=== PATIENT | female | born 2000 | race American Indian/Alaskan Native ===

== ENCOUNTER 2020-06-09 19:25 | Emergency (ER) | payer SELFPAY ==
[2020-06-09 20:35] VITALS: BP 124/76
--- NOTE | 2020-06-09 20:36 | Event Note ---
ED Screening Note Date of service: 06/09/20 Time: 20:34 ED Screening Note: 19-year-old female patient with history of asthma presents emergency department complaints of chest pain starting last night and right-sided neck pain/right- sided headache starting 1 week ago. Patient states she was lifted up in the air and dropped by accident, at which point her neck jerked back violently. She did not strike her head or lose consciousness. She states the chest pain is reminiscent of prior asthma exacerbations. She used an inhaler earlier today with relief. Denies shortness of breath, cough, wheezing. General: Awake, appropriately interactive, no acute distress. Neck: Supple. Full range of motion intact. There is right paraspinal cervical tenderness without midline tenderness or step-offs. Cardiovascular: Normal peripheral perfusion. Pulmonary: No respiratory distress. Patient is speaking normally without use of accessory muscles. Skin: No apparent rashes or lesions. Neurological: No facial asymmetry. Speech is clear. Follows commands. Patient is alert and oriented. Musculoskeletal: Moves all four extremities spontaneously with normal range of motion. Psych: Cooperative. Appropriate mood and affect. I have greeted and performed a focused rapid initial assessment of this patient. A comprehensive ED assessment and evaluation of the patient, analysis of all test results, and completion of the medical decision-making process will be conducted by additional ED providers. This initial assessment/diagnostic orders/clinical plan/treatment(s) is/are subject to change based on patients health status, clinical progression and re-assessment. Further treatment and workup at subsequent clinical provider's discretion. Patient/guardian urged not to elope from the ED as their condition may be serious if not clinically assessed and managed.
[2020-06-09] MEDS ORDERED: ALUM-MAG HYDROXIDE-SIMETHICONE 200-200-20MG/5ML ORAL LIQD 30 ML PO ONE (21:18)
[2020-06-09] MEDS ORDERED: IBUPROFEN 800 MG TAB PO ONE (21:18)
[2020-06-09] MEDS ORDERED: LIDOCAINE VISCOUS 2% 15 ML ORAL LIQD PO ONE (21:18)
--- NOTE | 2020-06-09 21:22 | Emergency Department Report ---
ED General Adult HPI - General Chief complaint: Neck Pain/Injury Stated complaint: HEADACHE/CHEST PAIN Time Seen by Provider: 06/09/20 21:16 Source: patient Mode of arrival: Ambulatory Limitations: No Limitations - History of Present Illness Initial comments: Pt is a 19-year-old female patient with history of asthma who presents to emergency department for complaints of chest pain starting last night and right- sided neck pain/right-sided headache starting 1 week ago. Patient states she was lifted up in the air and dropped by accident, at which point her neck jerked back violently. She did not strike her head or lose consciousness. She states the chest pain is reminiscent of prior asthma exacerbations. She used an inhaler earlier today with relief. Denies shortness of breath, cough, wheezing. Symptoms are exacerbated by movement and activity, symptoms are improved by rest and inhaler Severity scale (0 -10): 8 - Related Data Previous Rx's Medication Instructions Recorded Last Taken Type Famotidine [Pepcid] 20 mg PO BID #28 tablet 06/09/20 Unknown Rx Ibuprofen [Motrin 800 MG tab] 800 mg PO Q8HR PRN #30 tablet 06/09/20 Unknown Rx Allergies Allergy/AdvReac Type Severity Reaction Status Date / Time No Known Allergies Allergy Unverified 06/09/20 20:34 ED Review of Systems ROS: Stated complaint: HEADACHE/CHEST PAIN Other details as noted in HPI Constitutional: denies: chills, fever Eyes: denies: eye pain, eye discharge, vision change ENT: congestion. denies: ear pain, throat pain Respiratory: cough. denies: shortness of breath, wheezing Cardiovascular: chest pain (bilat anterior chest pain with cough ). denies: palpitations Endocrine: no symptoms reported Gastrointestinal: other (epigastric burning ). denies: abdominal pain, nausea, vomiting, diarrhea Genitourinary: denies: urgency, dysuria, discharge Musculoskeletal: denies: back pain, joint swelling, arthralgia Skin: denies: rash, lesions Neurological: denies: headache, weakness, paresthesias Psychiatric: denies: anxiety, depression Hematological/Lymphatic: denies: easy bleeding, easy bruising ED Past Medical Hx - Past Medical History Previous Medical History?: Yes Hx Asthma: Yes Additional medical history: ecxema - Surgical History Past Surgical History?: No - Medications Home Medications: Home Medications Medication Instructions Recorded Confirmed Last Taken Type Famotidine [Pepcid] 20 mg PO BID #28 tablet 06/09/20 Unknown Rx Ibuprofen [Motrin 800 MG tab] 800 mg PO Q8HR PRN #30 tablet 06/09/20 Unknown Rx ED Physical Exam - General Limitations: No Limitations General appearance: alert, in no apparent distress - Head Head exam: Present: normocephalic - Eye Eye exam: Present: normal appearance, EOMI Pupils: Present: normal accommodation - ENT ENT exam: Present: normal orophraynx, mucous membranes moist, TM's normal bilate rally, normal external ear exam - Neck Neck exam: Present: normal inspection, tenderness (right lateral neck muscle pain to palpation, no swelling no bruising, rom intact to all guardado without restriction, no posterior vertebral point tenderness ), full ROM. Absent: lymphadenopathy - Respiratory Respiratory exam: Present: normal lung sounds bilaterally, chest wall tenderness (right anterior latera chest wall tenderness to palpation, no bruising no stepoff, no crepitus ). Absent: respiratory distress, wheezes, stridor - Cardiovascular Cardiovascular Exam: Present: regular rate, normal heart sounds. Absent: normal rhythm - GI/Abdominal GI/Abdominal exam: Present: soft, normal bowel sounds. Absent: distended, tenderness, bruit, hernia - Rectal Rectal exam: Present: deferred - Extremities Exam Extremities exam: Present: normal inspection, full ROM. Absent: tenderness - Back Exam Back exam: Present: normal inspection, full ROM. Absent: CVA tenderness (R), CVA tenderness (L) - Neurological Exam Neurological exam: Present: alert, oriented X3, CN II-XII intact, normal gait - Psychiatric Psychiatric exam: Present: normal affect, normal mood - Skin Skin exam: Present: warm, dry, intact, normal color. Absent: rash ED Course Vital Signs 06/09/20 20:31 Temperature 97.8 F Pulse Rate 66 Respiratory 14 Rate Blood Pressure 124/76 [Right] O2 Sat by Pulse 100 Oximetry ED Medical Decision Making - Radiology Data Radiology results: report reviewed, image reviewed Ordering Physician: VICTOR MANUEL BENDER Date of Service: 06/09/20 Procedure(s): XR chest routine 2V Accession Number(s): [id number] cc: VICTOR MANUEL BENDER Fluoro Time In Minutes: CHEST 2 VIEWS INDICATION / CLINICAL INFORMATION: chest pain. COMPARISON: None available. FINDINGS: SUPPORT DEVICES: None. HEART / MEDIASTINUM: No significant abnormality. LUNGS / PLEURA: No significant pulmonary or pleural abnormality. No pneumothorax. ADDITIONAL FINDINGS: No significant additional findings. IMPRESSION: No acute cardiopulmonary abnormality. Signer Name: Julissa Hills MD Signed: 06/09/2020 9:18 PM Workstation Name: [id number] Transcribed By: SS Dictated By: JULISSA HILLS Electronically Authenticated By: JULISSA HILLS Signed Date/Time: 06/09/202117 DD/ 16 TD/TT: - Medical Decision Making Chest x-ray is normal no infiltrates no opacities. There is no posterior vertebral point tenderness to the cervical spine this is likely neck muscle strain. Patient has inhaler for as needed use for asthma. There is no wheezing lungs are clear throughout there is no stridor , chest wall pain is rep roducible to cough. Epigastric burning relieved with medication given in ED. This is likely reflux. Plan NSAIDs as needed muscle pain, Pepcid p.o. twice daily short-term treatment for reflux, follow-up with primary care doctor and to 3 days. Patient will continue to use albuterol inhaler as prescribed. Patient is currently alert oriented x3 amatory with steady gait with no acute distress at this time. Critical care attestation.: If time is entered above; I have spent that time in minutes in the direct care of this critically ill patient, excluding procedure time. ED Disposition Clinical Impression: Neck muscle strain Qualifiers: Encounter type: initial encounter Qualified Code(s): S16.1XXA - Strain of muscle, fascia and tendon at neck level, initial encounter Reflux esophagitis Qualifiers: Esophagitis bleeding: without hemorrhage Qualified Code(s): K21.00 - Gastro- esophageal reflux disease with esophagitis, without bleeding Disposition: DC-01 TO HOME OR SELFCARE Is pt being admited?: No Does the pt Need Aspirin: No Condition: Stable Instructions: Cervical Strain and Sprain Rehab-SportsMed, Heartburn Prescriptions: Ibuprofen [Motrin 800 MG tab] 800 mg PO Q8HR PRN #30 tablet PRN Reason: pain Famotidine [Pepcid] 20 mg PO BID #28 tablet Referrals: RUPERT LARSEN MD [Staff Physician] - 3-5 Days Forms: Work/School Release Form(ED) Time of Disposition: 21:37
--- NOTE | 2020-06-10 11:32 | Electrocardiograph Report ---
[facility] Test Date: 2020-06-09 Test Time: 20:51:38 Pat Name: PEARL NEGRO Department: Room: Gender: F Edge Blacker: CECILIO : 2000 Requested By: JUNIOR RICHMOND Order Number: [id number] Reading MD: Bonilla Sidhu Measurements Intervals [place] Rate: 57 P: 41 MS: 133 QRS: 69 QRSD: 99 T: 44 QT: 429 QTc: 417 Interpretive Statements Sinus bradycardia RSR' IN V1 OR V2, PROBABLY NORMAL VARIANT No previous ECG available for comparison Electronically Signed On 06-10-2020 11:31:36 EDT by Bonilla Sidhu
== END 2020-06-09 21:56 | disposition home or self-care (01) ==
LOC: ED 19:25
DX: S16.1XXA Strain of muscle, fascia and tendon at neck level, initial encounter (principal); K21.00 Gastro-esophageal reflux disease with esophagitis, without bleeding; J45.909 Unspecified asthma, uncomplicated; Z79.899 Other long term (current) drug therapy; X58.XXXA Exposure to other specified factors, initial encounter; Y93.89 Activity, other specified; Y92.89 Other specified places as the place of occurrence of the external cause; Y99.8 Other external cause status
CPT/HCPCS: 71046; 93005; 99283

== ENCOUNTER 2020-10-08 12:43 | Emergency (ER) | payer SELFPAY ==
[2020-10-08 17:14] LABS: Hemoglobin 10.4 gm/dl (10.1-14.3); Mean Corpuscular HGB Conc 33 % (30-34); Platelet Count 349 K/mm3 (140-440); Red Blood Count 4.94 M/mm3 (3.65-5.03); Red Cell Distribution Width 16.4 % (13.2-15.2)
[2020-10-08 17:22] LABS: Mean Corpuscular Volume 65 fl (79-97)
--- NOTE | 2020-10-08 17:39 | Emergency Department Report ---
ED General Adult HPI - General Chief complaint: Skin Rash Stated complaint: SKIN INFLAMATIONS /LUMPS Time Seen by Provider: 10/08/20 15:55 Source: patient Mode of arrival: Ambulatory Limitations: No Limitations - History of Present Illness Initial comments: Patient is a 20-year-old female presents emergency room with complaints of an exacerbation of her eczema. She states that she ran out of her triamcinolone and that her skin has become dry and scaly and very irritated. She states that she does not have a primary care physician. She denies any fever, nausea, vomiting, diarrhea. Patient states that she is also noticed multiple lumps over the last couple weeks. She also has a past medical history of asthma. No allergies to medications. - Related Data Previous Rx's Medication Instructions Recorded Last Taken Type Famotidine [Pepcid] 20 mg PO BID #28 tablet 06/09/20 Unknown Rx Ibuprofen [Motrin 800 MG tab] 800 mg PO Q8HR PRN #30 tablet 06/09/20 Unknown Rx Triamcinolone 0.025% (Nf) [Kenalog 1 applic TP TID #80 g 10/08/20 Unknown Rx 0.025% OINT] Allergies Allergy/AdvReac Type Severity Reaction Status Date / Time No Known Allergies Allergy Unverified 06/09/20 20:34 ED Review of Systems ROS: Stated complaint: SKIN INFLAMATIONS /LUMPS Other details as noted in HPI Comment: All other systems reviewed and negative ED Past Medical Hx - Past Medical History Previous Medical History?: Yes Hx Asthma: Yes Additional medical history: ecxema - Medications Home Medications: Home Medications Medication Instructions Recorded Confirmed Last Taken Type Famotidine [Pepcid] 20 mg PO BID #28 tablet 06/09/20 Unknown Rx Ibuprofen [Motrin 800 MG tab] 800 mg PO Q8HR PRN #30 tablet 06/09/20 Unknown Rx Triamcinolone 0.025% (Nf) [Kenalog 1 applic TP TID #80 g 10/08/20 Unknown Rx 0.025% OINT] ED Physical Exam - General Limitations: No Limitations General appearance: alert, in no apparent distress - Head Head exam: Present: atraumatic, normocephalic - Eye Eye exam: Present: normal appearance - ENT ENT exam: Present: mucous membranes moist - Neck Neck exam: Present: lymphadenopathy (there are two small left anterior cervical LAD, one small right axillary LAD, and one small right lateral chest wall LAD) - Respiratory Respiratory exam: Absent: respiratory distress, accessory muscle use - Neurological Exam Neurological exam: Present: alert, oriented X3 - Psychiatric Psychiatric exam: Present: normal affect, normal mood - Skin Skin exam: Present: warm, dry, other (dry hyperpigmented skin diffusely, no blistering, no skin denuding, no erythema, no increased warmth ) ED Course Vital Signs 10/08/20 10/08/20 13:50 19:21 Temperature 98.7 F Pulse Rate 69 84 Respiratory 16 18 Rate Blood Pressure 110/60 110/66 [Right] O2 Sat by Pulse 100 100 Oximetry ED Medical Decision Making - Lab Data Result diagrams: 10/08/20 16:27 - Medical Decision Making Patient is a 20-year-old female presents emergency room with complaints of an exacerbation of her eczema. She states that she ran out of her triamcinolone and that her skin has become dry and scaly and very irritated. She states that she does not have a primary care physician. She denies any fever, nausea, vomiting, diarrhea. Patient states that she is also noticed multiple lumps over the last couple weeks. She also has a past medical history of asthma. No allergies to medications. Vitals are normal. On exam:there are two small left anterior cervical LAD, one small right axillary LAD, and one small right lateral chest wall LAD, dry hyperpigmented skin diffusely, no blistering, no skin denuding, no erythema, no increased warmth. Labs with mildly elevated CRP, oth erwise stable. Given that she has multiple lymphadenopathies, she needs outpatient follow-up for further evaluation. Patient given a refill of her triamcinolone. Advised patient Please use medication as prescribed. Please follow-up with your primary care doctor for reexamination. Please discuss with your primary care doctor your multiple lymph nodes as you may likely need an outpatient biopsy. Return to emergency room for any new or worsening symptoms. Critical care attestation.: If time is entered above; I have spent that time in minutes in the direct care of this critically ill patient, excluding procedure time. ED Disposition Clinical Impression: Acute eczema, LAD (lymphadenopathy), Elevated C-reactive protein (CRP) Disposition: TO HOME OR SELFCARE Is pt being admited?: No Does the pt Need Aspirin: No Condition: Stable Instructions: Eczema, Lymphadenopathy Additional Instructions: Please use medication as prescribed. Please follow-up with your primary care doctor for reexamination. Please discuss with your primary care doctor your multiple lymph nodes as you may likely need an outpatient biopsy. Return to emergency room for any new or worsening symptoms. Prescriptions: Triamcinolone 0.025% (Nf) [Kenalog 0.025% OINT] 1 applic TP TID #80 g Referrals: RUPERT LARSEN MD [Staff Physician] - 3-5 Days [facility] [Provider Group] - 3-[address] [facility] [place] [Outside] - 3-5 Days [facility] [Outside] - 3-5 Days Time of Disposition: 18:07 Print Language: SWEDISH
[2020-10-08 18:03] LABS: Total Cells Counted 100
[2020-10-08 18:04] LABS: Anisocytosis RARE; Hypochromasia 2+
[2020-10-08 19:22] VITALS: BP 110/66
== END 2020-10-08 19:22 | disposition home or self-care (01) ==
LOC: ED 12:43
DX: L30.9 Dermatitis, unspecified (principal); R59.1 Generalized enlarged lymph nodes; R79.82 Elevated C-reactive protein (CRP); J45.909 Unspecified asthma, uncomplicated; Z79.899 Other long term (current) drug therapy
CPT/HCPCS: 36415; 85007; 85025; 86140; 99283